=== PATIENT | female | born 1985 | race Caucasian/White ===

== ENCOUNTER 2022-12-14 09:46 | Emergency (ER) | payer OTHER ==
[2022-12-14 09:55] VITALS: BMI 19.4
[2022-12-14] MEDS ORDERED: ONDANSETRON 4 MG/2 ML VIAL IVPUSH ONE (10:39)
[2022-12-14] MEDS ORDERED: ACETAMINOPHEN 1000 MG/100 ML BAG IVPB ONE (10:39)
[2022-12-14] MEDS ORDERED: SODIUM CHLORIDE 0.9% 500 ML INFUS.BAG IV ONE (10:39)
[2022-12-14] MEDS ORDERED: ACETAMINOPHEN INJECTION 100 ML IVPB ONE (10:40)
[2022-12-14] MEDS ORDERED: ONDANSETRON 4 MG/2 ML VIAL ONE (10:40)
[2022-12-14 11:03] LABS: BASO % 0.7 % (0-2.0); EOS % 3.3 % (0-4.5); HEMATOCRIT 40.6 % (32.4-45.2); HEMOGLOBIN 13.3 GM/dL (10.7-15.3); LYMPH % 33.6 % (8-40); MCH 29.7 pg (25.7-33.7); MCHC 32.7 g/dl (32.0-36.0); MEAN CELL VOLUME 90.9 fl (80-96); MEAN PLT VOLUME 7.3 fl (7.5-11.1); MONO % 8.8 % (3.8-10.2); NEUT % 53.6 % (42.8-82.8); PLATELET COUNT 301 10^3/uL (134-434); RBC 4.46 M/mm3 (3.60-5.2); RDW 14.6 % (11.6-15.6); WHITE BLOOD COUNT 7.5 K/mm3 (4.0-10.0)
[2022-12-14 11:09] VITALS: TEMP 98.3
[2022-12-14 11:16] LABS: POTASSIUM 3.9 mmol/L (3.5-5.1)
[2022-12-14 11:17] LABS: ACTIVATED PTT 35.8 SECONDS (25.2-36.5); INR 1.1 (0.83-1.09); PROTHROMBIN TIME (PATIENT) 12.7 SEC (9.7-13.0)
[2022-12-14 11:18] LABS: ALBUMIN 4.3 g/dl (3.4-5.0); BLOOD UREA NITROGEN 7.8 mg/dL (7-18)
[2022-12-14 11:21] LABS: CREATININE 0.8 mg/dL (0.55-1.3)
[2022-12-14 11:23] LABS: BILIRUBIN,TOTAL 0.4 mg/dL (0.2-1); TOT PROT 8.3 g/dl (6.4-8.2)
[2022-12-14 11:29] LABS: PH,URINE 5.5 (5.0-8.0); URINE APPEARANCE CLEAR; URINE BILIRUBIN NEGATIVE (NEGATIVE); URINE COLOR YELLOW; URINE GLUCOSE (UA) NEGATIVE (NEGATIVE); URINE KETONE NEGATIVE (NEGATIVE); URINE LEUK ESTERASE NEGATIVE (NEGATIVE); URINE NITRITE NEGATIVE (NEGATIVE); URINE PROTEIN NEGATIVE (NEGATIVE); URINE UROBILINOGEN 0.2 mg/dL (0.2-1.0)
[2022-12-14 13:42] VITALS: BP 130/74; PULSE 61; RESP 14
[2022-12-14] MEDS ORDERED: KETOROLAC TROMETHAMINE 15 MG/ML VIAL IVPUSH ONE (14:56)
[2022-12-14] MEDS ORDERED: KETOROLAC TROMETHAMINE 15 MG/ML VIAL ONE (15:10)
== END 2022-12-14 17:09 | disposition home or self-care (01) ==
LOC: JER 09:46
PROC: 3E033NZ Introduction of Analgesics, Hypnotics, Sedatives into Peripheral Vein, Percutaneous Approach (ICD-10-PCS; principal; 2022-12-14)
PROC: 3E033GC Introduction of Other Therapeutic Substance into Peripheral Vein, Percutaneous Approach (ICD-10-PCS; 2022-12-14)
DX: R10.12 Left upper quadrant pain (principal); R11.0 Nausea
CPT/HCPCS: 36415; 74177-TC; 76830-TC; 80053; 81003; 84703; 85025; 85610; 85730; 86850; 86900; 86901; 87086; 87186; 99285-25; Q9967

== ENCOUNTER 2023-04-12 13:59 | Observation (INO) | payer OTHER ==
[2023-04-12] MEDS ORDERED: KETOROLAC TROMETHAMINE 15 MG/ML VIAL IVPUSH ONE ×2 (15:15→16:36)
[2023-04-12] MEDS ORDERED: ACETAMINOPHEN 1000 MG/100 ML BAG IVPB ONE (15:18)
[2023-04-12] MEDS ORDERED: KETOROLAC TROMETHAMINE 15 MG/ML VIAL ONE ×2 (15:26→17:28)
[2023-04-12] MEDS ORDERED: ACETAMINOPHEN INJECTION 100 ML IVPB ONE (15:26)
[2023-04-12 16:18] LABS: BASO % 0.7 % (0-2.0); EOS % 2.5 % (0-4.5); HEMATOCRIT 38.7 % (32.4-45.2); HEMOGLOBIN 12.4 GM/dL (10.7-15.3); LYMPH % 34.1 % (8-40); MCH 29.2 pg (25.7-33.7); MEAN CELL VOLUME 91.2 fl (80-96); MEAN PLT VOLUME 7.3 fl (7.5-11.1); MONO % 7.5 % (3.8-10.2); NEUT % 55.2 % (42.8-82.8); PLATELET COUNT 325 10^3/uL (134-434); RBC 4.25 M/mm3 (3.60-5.2); WHITE BLOOD COUNT 8.7 K/mm3 (4.0-10.0)
[2023-04-12 16:23] LABS: CALCIUM 9.2 mg/dL (8.5-10.1)
[2023-04-12 16:24] LABS: BLOOD UREA NITROGEN 10.1 mg/dL (7-18); MAGNESIUM 2.3 mg/dL (1.8-2.4)
[2023-04-12 16:27] LABS: CREATININE 0.7 mg/dL (0.55-1.3)
[2023-04-12 16:29] LABS: BILIRUBIN,TOTAL 0.4 mg/dL (0.2-1); TOT PROT 7.6 g/dl (6.4-8.2)
[2023-04-12] MEDS ORDERED: morphine CARPU-JECT 2 MG/1 ML DISP.SYRIN IVPUSH ONE (18:41)
[2023-04-13 00:07] VITALS: BMI 21.5
[2023-04-13] MEDS: ACETAMINOPHEN 325 MG TABLET (FP) PO SCH ×3 (00:23→10:31)
[2023-04-13] MEDS: CODEINE SO4 30 MG TABLET PO SCH ×3 (00:24→10:30)
[2023-04-13] MEDS: IBUPROFEN 600 MG TABLET (FP) PO SCH ×3 (05:45→22:36)
[2023-04-13 09:39] LABS: BASO % 0.4 % (0-2.0); EOS % 4.1 % (0-4.5); HEMATOCRIT 36.5 % (32.4-45.2); HEMOGLOBIN 11.9 GM/dL (10.7-15.3); LYMPH % 49.9 % (8-40); MCHC 32.6 g/dl (32.0-36.0); MEAN CELL VOLUME 91.9 fl (80-96); MEAN PLT VOLUME 7.5 fl (7.5-11.1); MONO % 7.2 % (3.8-10.2); NEUT % 38.4 % (42.8-82.8); PLATELET COUNT 304 10^3/uL (134-434); RBC 3.98 M/mm3 (3.60-5.2); RDW 13.6 % (11.6-15.6); WHITE BLOOD COUNT 9.2 K/mm3 (4.0-10.0)
[2023-04-13 09:41] LABS: POTASSIUM 3.6 mmol/L (3.5-5.1)
[2023-04-13 09:52] LABS: ALBUMIN 3.7 g/dl (3.4-5.0)
[2023-04-13 09:53] LABS: MAGNESIUM 2.2 mg/dL (1.8-2.4)
[2023-04-13 09:54] LABS: BILIRUBIN,TOTAL 0.4 mg/dL (0.2-1); CALCIUM 8.8 mg/dL (8.5-10.1); TOT PROT 7.2 g/dl (6.4-8.2)
[2023-04-13 09:55] LABS: CREATININE 0.7 mg/dL (0.55-1.3); PHOSPHOROUS 3.6 mg/dL (2.5-4.9)
[2023-04-13 09:56] LABS: BLOOD UREA NITROGEN 13.2 mg/dL (7-18)
[2023-04-13] MEDS ORDERED: KETOROLAC TROMETHAMINE 15 MG/ML VIAL IVPUSH PRN (13:43)
[2023-04-13] MEDS ORDERED: ACETAMINOPHEN 1000 MG/100 ML BAG IVPB PRN (13:43)
[2023-04-13] MEDS ORDERED: LACTATED RINGERS SOLUTION 1000 ML INFUS.BAG IV ONE (13:44)
[2023-04-13] MEDS ORDERED: MAG HYDROX/AL HYDROX/SIMETH 30 ML UNIT-DOSE CUP PO PRN (15:12)
[2023-04-13] MEDS: FAMOTIDINE 20 MG TABLET PO SCH (22:37)
[2023-04-14] MEDS: IBUPROFEN 600 MG TABLET (FP) PO SCH ×2 (05:43→13:50)
[2023-04-14 06:44] VITALS: TEMP 98.8
[2023-04-14] MEDS: FAMOTIDINE 20 MG TABLET PO SCH (09:40)
[2023-04-14 11:52] LABS: BASO % 0.4 % (0-2.0); EOS % 3.6 % (0-4.5); HEMOGLOBIN 11.6 GM/dL (10.7-15.3); LYMPH % 22.6 % (8-40); MCH 29.6 pg (25.7-33.7); MCHC 32.3 g/dl (32.0-36.0); MEAN CELL VOLUME 91.8 fl (80-96); MEAN PLT VOLUME 7.5 fl (7.5-11.1); MONO % 8.2 % (3.8-10.2); NEUT % 65.2 % (42.8-82.8); PLATELET COUNT 289 10^3/uL (134-434); RBC 3.92 M/mm3 (3.60-5.2); RDW 13.7 % (11.6-15.6); WHITE BLOOD COUNT 9.6 K/mm3 (4.0-10.0)
[2023-04-14 12:11] LABS: POTASSIUM 3.7 mmol/L (3.5-5.1)
[2023-04-14 12:14] LABS: BLOOD UREA NITROGEN 11.6 mg/dL (7-18); CALCIUM 8.8 mg/dL (8.5-10.1)
[2023-04-14 12:18] LABS: CREATININE 0.7 mg/dL (0.55-1.3)
[2023-04-14 16:51] VITALS: BP 100/60; PULSE 76; RESP 16
== END 2023-04-14 14:10 | disposition home or self-care (01) ==
LOC: JER 13:59 → JERBED 19:14 → J5S 22:34
PROVIDERS: ADMIT Internal Medicine; ATTEND Internal Medicine
PROC: 3E0333Z Introduction of Anti-inflammatory into Peripheral Vein, Percutaneous Approach (ICD-10-PCS; principal; 2023-04-12)
PROC: 3E0337Z Introduction of Electrolytic and Water Balance Substance into Peripheral Vein, Percutaneous Approach (ICD-10-PCS; 2023-04-12)
PROC: 3E033NZ Introduction of Analgesics, Hypnotics, Sedatives into Peripheral Vein, Percutaneous Approach (ICD-10-PCS; 2023-04-12)
PROC: 3E0337Z Introduction of Electrolytic and Water Balance Substance into Peripheral Vein, Percutaneous Approach (ICD-10-PCS; 2023-04-12)
DX: K63.89 Other specified diseases of intestine (principal); N20.0 Calculus of kidney; R10.32 Left lower quadrant pain; F90.9 Attention-deficit hyperactivity disorder, unspecified type; Z86.19 Personal history of other infectious and parasitic diseases; G43.909 Migraine, unspecified, not intractable, without status migrainosus; Z90.49 Acquired absence of other specified parts of digestive tract
CPT/HCPCS: 0241U-QW; 36415; 74177-TC; 76830-TC; 80048; 80053; 82150; 82550; 83605; 83690; 83735; 84100; 84703; 85025; 86038; 86140; 87086; 96374; 96375; 96376; 99285-25; G0378; Q9967

== ENCOUNTER 2023-11-15 20:13 | Emergency (ER) | payer OTHER ==
[2023-11-15 20:23] VITALS: BP 118/78; PULSE 88; RESP 16; TEMP 98.7; BMI 19.8
[2023-11-15] MEDS ORDERED: ACETAMINOPHEN INJECTION 100 ML IVPB ONE (21:16)
[2023-11-15] MEDS ORDERED: METOCLOPRAMIDE HCL INJECTION 10 MG/2 ML VIAL ONE (21:16)
[2023-11-15 21:28] LABS: URINE APPEARANCE CLEAR; URINE BILIRUBIN NEGATIVE (NEGATIVE); URINE COLOR YELLOW; URINE GLUCOSE (UA) NEGATIVE (NEGATIVE); URINE KETONE NEGATIVE (NEGATIVE); URINE LEUK ESTERASE NEGATIVE (NEGATIVE); URINE NITRITE NEGATIVE (NEGATIVE); URINE PROTEIN NEGATIVE (NEGATIVE); URINE UROBILINOGEN 0.2 mg/dL (0.2-1.0)
[2023-11-15] MEDS: ONDANSETRON 4 MG/2 ML VIAL IVPUSH ONE (21:34)
[2023-11-15] MEDS: LACTATED RINGERS SOLUTION 1000 ML INFUS.BAG IV ONE (21:34)
[2023-11-15] MEDS: METOCLOPRAMIDE HCL INJECTION 10 MG/2 ML VIAL IVPB ONE (21:34)
[2023-11-15] MEDS: ACETAMINOPHEN 1000 MG/100 ML BAG IVPB ONE (21:34)
[2023-11-15 21:43] LABS: BASO % 0.8 % (0-2.0); EOS % 2.8 % (0-4.5); HEMATOCRIT 38.6 % (32.4-45.2); LYMPH % 32.5 % (8-40); MCH 29.9 pg (25.7-33.7); MCHC 33.6 g/dl (32.0-36.0); MEAN CELL VOLUME 88.9 fl (80-96); MEAN PLT VOLUME 7.1 fl (7.5-11.1); MONO % 7.6 % (3.8-10.2); NEUT % 56.3 % (42.8-82.8); PLATELET COUNT 322 10^3/uL (134-434); RBC 4.34 M/mm3 (3.60-5.2); RDW 14.2 % (11.6-15.6); WHITE BLOOD COUNT 9.5 K/mm3 (4.0-10.0)
[2023-11-15 22:14] LABS: POTASSIUM 3.6 mmol/L (3.5-5.1)
[2023-11-15 22:16] LABS: ALBUMIN 4.3 g/dl (3.4-5.0); BLOOD UREA NITROGEN 13.1 mg/dL (7-18); MAGNESIUM 2.4 mg/dL (1.8-2.4)
[2023-11-15 22:19] LABS: CREATININE 0.9 mg/dL (0.55-1.3)
[2023-11-15 22:21] LABS: BILIRUBIN,TOTAL 0.2 mg/dL (0.2-1); TOT PROT 8.2 g/dl (6.4-8.2)
[2023-11-15 23:06] LABS: HIV INTERPRETATION NEGATIVE (NEGATIVE)
== END 2023-11-16 00:13 | disposition home or self-care (01) ==
LOC: JER 20:13
PROC: 3E033NZ Introduction of Analgesics, Hypnotics, Sedatives into Peripheral Vein, Percutaneous Approach (ICD-10-PCS; principal; 2023-11-15)
PROC: 3E033GC Introduction of Other Therapeutic Substance into Peripheral Vein, Percutaneous Approach (ICD-10-PCS; 2023-11-15)
PROC: 3E033GC Introduction of Other Therapeutic Substance into Peripheral Vein, Percutaneous Approach (ICD-10-PCS; 2023-11-15)
DX: M54.50 Low back pain, unspecified (principal); R51.9 Headache, unspecified; R35.0 Frequency of micturition; R39.15 Urgency of urination; R11.0 Nausea; R10.9 Unspecified abdominal pain
CPT/HCPCS: 36415; 74176-TC; 80053; 81003; 83735; 84703; 85025; 86803; 87086; 87389; 99284-25; J0131

== ENCOUNTER 2024-05-25 09:11 | Observation (INO) | payer OTHER ==
[2024-05-25] MEDS ORDERED: ACETAMINOPHEN INJECTION 100 ML ONE (10:29)
[2024-05-25] MEDS ORDERED: FAMOTIDINE 20 MG/50 ML IVPB 20 MG/50 ML MG IVPB ONE (10:29)
[2024-05-25] MEDS ORDERED: ONDANSETRON 4 MG/2 ML VIAL ONE (10:30)
[2024-05-25] MEDS: FAMOTIDINE 20 MG/50 ML IVPB 20 MG/50 ML MG IVPB ONE (11:05)
[2024-05-25] MEDS: ACETAMINOPHEN 1000 MG/100 ML BAG IVPB ONE (11:05)
[2024-05-25] MEDS: SODIUM CHLORIDE 0.9% 500 ML INFUS.BAG IV ONE (11:05)
[2024-05-25] MEDS: ONDANSETRON 4 MG/2 ML VIAL IVPUSH ONE (11:05)
[2024-05-25 11:07] LABS: BASO % 0.3 % (0-2.0); EOS % 0.7 % (0-4.5); HEMATOCRIT 39.2 % (32.4-45.2); HEMOGLOBIN 12.6 GM/dL (10.7-15.3); LYMPH % 23.4 % (8-40); MCH 29.3 pg (25.7-33.7); MEAN CELL VOLUME 91.3 fl (80-96); MEAN PLT VOLUME 7.2 fl (7.5-11.1); MONO % 7.5 % (3.8-10.2); NEUT % 68.1 % (42.8-82.8); PLATELET COUNT 348 10^3/uL (134-434); RBC 4.29 M/mm3 (3.60-5.2); RDW 14.2 % (11.6-15.6); WHITE BLOOD COUNT 14.2 K/mm3 (4.0-10.0)
[2024-05-25 11:13] LABS: INR 1.11 (0.83-1.09); PROTHROMBIN TIME (PATIENT) 12.1 SEC (9.7-13.0)
[2024-05-25 11:16] LABS: ACTIVATED PTT 27.4 SECONDS (25.2-36.5)
[2024-05-25 11:30] LABS: POTASSIUM 3.9 mmol/L (3.5-5.1)
[2024-05-25 11:33] LABS: ALBUMIN 3.9 g/dl (3.4-5.0); BLOOD UREA NITROGEN 13.8 mg/dL (7-18); CALCIUM 8.9 mg/dL (8.5-10.1)
[2024-05-25 11:36] LABS: CREATININE 0.7 mg/dL (0.55-1.3)
[2024-05-25 11:38] LABS: BILIRUBIN,TOTAL 0.4 mg/dL (0.2-1); TOT PROT 8.2 g/dl (6.4-8.2)
[2024-05-25 12:09] LABS: URINE APPEARANCE Clear; URINE BILIRUBIN Negative (NEGATIVE); URINE COLOR Yellow; URINE GLUCOSE (UA) Negative (NEGATIVE); URINE KETONE Negative (NEGATIVE); URINE LEUK ESTERASE Negative (NEGATIVE); URINE NITRITE Negative (NEGATIVE); URINE PROTEIN 1+ (NEGATIVE); URINE UROBILINOGEN 0.2 mg/dL (0.2-1.0)
[2024-05-25 12:10] LABS: EPI CELLS 112.4 /uL (0-25.1); HYALINE CASTS 7.81 /uL (0-3.1); URINE BACTERIA 1457.1 /uL (0-1359); URINE RBC 27.4 /uL (0-23.9)
[2024-05-25 12:18] LABS: HCG,QUALITATIVE URINE Negative
[2024-05-25 12:27] LABS: HIV INTERPRETATION NEGATIVE (NEGATIVE)
[2024-05-25] MEDS ORDERED: morphine SULFATE 4 MG/ML VIAL ONE (12:59)
[2024-05-25] MEDS: morphine CARPU-JECT 4 MG/1 ML DISP.SYRIN IVPUSH ONE (13:09)
[2024-05-25] MEDS ORDERED: CEFTRIAXONE 1 G/50 ML PREMIX 50 ML IVPB ONE (13:22)
[2024-05-25] MEDS: CEFTRIAXONE 1,000 MG in DEXTROSE 5%-WATER - 50 ML IVPB ONE (13:43)
[2024-05-25 15:57] VITALS: BMI 20.9
[2024-05-25] MEDS: KETOROLAC TROMETHAMINE 15 MG/ML VIAL IVPUSH PRN (18:26)
[2024-05-25] MEDS: ACETAMINOPHEN 1000 MG/100 ML BAG IVPB PRN (22:39)
[2024-05-26] MEDS: LEVOTHYROXINE NA 50 MCG TABLET (FP) PO SCH (06:16)
[2024-05-26 09:40] LABS: BASO % 0.6 % (0-2.0); HEMATOCRIT 34.7 % (32.4-45.2); HEMOGLOBIN 11.1 GM/dL (10.7-15.3); LYMPH % 36.3 % (8-40); MCH 29.5 pg (25.7-33.7); MCHC 32.1 g/dl (32.0-36.0); MEAN PLT VOLUME 7.5 fl (7.5-11.1); MONO % 4.2 % (3.8-10.2); NEUT % 55.9 % (42.8-82.8); PLATELET COUNT 300 10^3/uL (134-434); RBC 3.77 M/mm3 (3.60-5.2); WHITE BLOOD COUNT 8.5 K/mm3 (4.0-10.0)
[2024-05-26 09:57] LABS: CALCIUM 8.2 mg/dL (8.5-10.1)
[2024-05-26 09:58] LABS: BLOOD UREA NITROGEN 13.8 mg/dL (7-18); MAGNESIUM 2.1 mg/dL (1.8-2.4)
[2024-05-26 10:01] LABS: CREATININE 0.7 mg/dL (0.55-1.3); PHOSPHOROUS 2.1 mg/dL (2.5-4.9)
[2024-05-26 10:02] LABS: ALBUMIN 3.1 g/dl (3.4-5.0); BILIRUBIN,TOTAL 0.4 mg/dL (0.2-1); TOT PROT 6.5 g/dl (6.4-8.2)
[2024-05-26] MEDS: CEFTRIAXONE 1 G/50 ML PREMIX 50 ML IVPB SCH (10:12)
[2024-05-26] MEDS: PEG 3350/NA SULF BICARB CL/KCL 4000 ML SOLN.RECON PO ONE (10:51)
[2024-05-26] MEDS: traMADol HCL 50 MG TABLET PO PRN (13:15)
[2024-05-26 16:11] VITALS: RESP 18
[2024-05-26] MEDS: ENOXAPARIN NA (PORCINE) 40 MG/0.4 ML DISP.SYRIN SQ SCH (18:56)
[2024-05-26] MEDS: NAPH,MB-DB/K PH,MBDB POWDER PACKET PO SCH (21:34)
[2024-05-26] MEDS: METOCLOPRAMIDE HCL INJECTION 10 MG/2 ML VIAL IVPUSH ONE (21:35)
[2024-05-27 09:40] LABS: BASO % 0.6 % (0-2.0); EOS % 4.7 % (0-4.5); HEMATOCRIT 35.7 % (32.4-45.2); LYMPH % 27.7 % (8-40); MCH 30.4 pg (25.7-33.7); MCHC 33.5 g/dl (32.0-36.0); MEAN CELL VOLUME 90.6 fl (80-96); MEAN PLT VOLUME 7.2 fl (7.5-11.1); MONO % 4.8 % (3.8-10.2); NEUT % 62.2 % (42.8-82.8); PLATELET COUNT 320 10^3/uL (134-434); RBC 3.94 M/mm3 (3.60-5.2); RDW 14.4 % (11.6-15.6); WHITE BLOOD COUNT 9.7 K/mm3 (4.0-10.0)
[2024-05-27 10:11] LABS: CALCIUM 8.3 mg/dL (8.5-10.1)
[2024-05-27 10:12] LABS: ALBUMIN 3.2 g/dl (3.4-5.0); BLOOD UREA NITROGEN 10.9 mg/dL (7-18)
[2024-05-27 10:15] LABS: CREATININE 0.7 mg/dL (0.55-1.3)
[2024-05-27 10:16] LABS: BILIRUBIN,TOTAL 0.4 mg/dL (0.2-1); TOT PROT 6.7 g/dl (6.4-8.2)
[2024-05-27] MEDS: POLYETHYLENE GLYCOL (HEALTHYLAX) 3350 17 GM PACKET PO SCH (10:25)
[2024-05-27 13:07] VITALS: BP 105/58; PULSE 76; TEMP 98.2
== END 2024-05-27 14:15 | disposition home or self-care (01) ==
LOC: JER 09:11 → JERBED 13:56 → J8W 15:29
PROVIDERS: ADMIT Internal Medicine; ATTEND Nurse Practitioner Family
PROC: 3E03329 Introduction of Other Anti-infective into Peripheral Vein, Percutaneous Approach (ICD-10-PCS; principal; 2024-05-25)
PROC: 3E033NZ Introduction of Analgesics, Hypnotics, Sedatives into Peripheral Vein, Percutaneous Approach (ICD-10-PCS; 2024-05-25)
PROC: 3E023GC Introduction of Other Therapeutic Substance into Muscle, Percutaneous Approach (ICD-10-PCS; 2024-05-25)
PROC: 3E033GC Introduction of Other Therapeutic Substance into Peripheral Vein, Percutaneous Approach (ICD-10-PCS; 2024-05-25)
PROC: 3E0333Z Introduction of Anti-inflammatory into Peripheral Vein, Percutaneous Approach (ICD-10-PCS; 2024-05-25)
PROC: 3E033GC Introduction of Other Therapeutic Substance into Peripheral Vein, Percutaneous Approach (ICD-10-PCS; 2024-05-25)
PROC: 3E0337Z Introduction of Electrolytic and Water Balance Substance into Peripheral Vein, Percutaneous Approach (ICD-10-PCS; 2024-05-25)
DX: R10.32 Left lower quadrant pain (principal); Z29.9 Encounter for prophylactic measures, unspecified; Z90.49 Acquired absence of other specified parts of digestive tract; Z87.442 Personal history of urinary calculi; Z86.19 Personal history of other infectious and parasitic diseases
CPT/HCPCS: 36415; 74177-TC; 76830-TC; 80053; 81003; 83690; 83735; 84100; 84703; 85025; 85610; 85730; 86803; 86850; 86900; 86901; 87086; 87389; 96365; 96366; 96367; 96372; 96375; 96376; 99285-25; G0378; J0131